=== PATIENT | male | born 1990 | race Two or more races ===

== ENCOUNTER 2020-11-06 13:54 | Emergency (ER) | payer MEDICAID, OTHER ==
[~2020-11-06] VITALS: Ht 175.3 cm; Wt 105.2 kg
[2020-11-06 15:14] VITALS: BP 127/99
== END 2020-11-06 17:11 | disposition home or self-care (01) ==
LOC: ER 13:54
DX: S50.12XA Contusion of left forearm, initial encounter (principal); W26.8XXA Contact with other sharp object(s), not elsewhere classified, initial encounter; Y93.89 Activity, other specified; Y92.89 Other specified places as the place of occurrence of the external cause; Y99.8 Other external cause status
CPT/HCPCS: 73090

== ENCOUNTER 2020-12-30 15:25 | Emergency (ER) | payer MEDICAID ==
[~2020-12-30] VITALS: Ht 175.3 cm; Wt 108.9 kg
[2020-12-30 18:46] VITALS: BP 137/89
== END 2020-12-30 19:27 | disposition home or self-care (01) ==
LOC: ER 15:25
DX: J02.9 Acute pharyngitis, unspecified (principal); Z20.822 Contact with and (suspected) exposure to COVID-19
CPT/HCPCS: 36415; 87426